=== PATIENT | female | born 1980 | race Caucasian/White ===

== ENCOUNTER 2019-03-17 18:35 | Emergency (ER) | payer OTHER ==
[2019-03-17 18:48] VITALS: BP 149/84
--- NOTE | 2019-03-17 19:00 | UC ---
Complaint Female HPI - HPI Summary HPI Summary: Patient is a 39yo female presenting with burning with urination x1 hour. Patient states she "gets UTIs occasionally and knows her symptoms." Denies abdominal pain. Denies hematuria. Denies malodorous urine. Denies flank pain. Denies fever and chills. Denies n/v. Patient states she "usually take Macrobid or Bactrim." - History Of Current Complaint Stated Complaint: URINARY Hx Obtained From: Patient Hx Last Menstrual Period: 03/08/19 Onset/Duration: Sudden Onset, Lasting Hours Pain Intensity: 8 Pain Scale Used: 0-10 Numeric - Allergies/Home Medications Allergies/Adverse Reactions: Allergies Allergy/AdvReac Type Severity Reaction Status Date / Time No Known Allergies Allergy Verified 03/17/19 18:42 Home Medications: Home Medications Cholecalciferol TAB* [Vitamin D TAB*] 1,000 unit PO DAILY 03/17/19 [History Confirmed 03/17/19] Magnesium Oxide [Magnesium] 500 mg PO DAILY 03/17/19 [History Confirmed 03/17/19 ] Tranexamic Acid 2 tab PO TID PRN 03/17/19 [History Confirmed 03/17/19] PMH/Surg Hx/FS Hx/Imm Hx Previously Healthy: Yes - Surgical History Surgical History: None - Family History Known Family History: Positive: Unknown, Non-Contributory - Social History Occupation: Employed Full-time Alcohol Use: Occasionally Substance Use Type: None Smoking Status (MU): Never Smoked Tobacco Review of Systems All Other Systems Reviewed And Are Negative: Yes Constitutional: Positive: Negative. Negative: Fever, Chills Respiratory: Positive: Negative Cardiovascular: Positive: Negative Gastrointestinal: Positive: Negative. Negative: Abdominal Pain, Vomiting, Nausea Genitourinary: Positive: Dysuria. Negative: Hematuria, Frequency, Urgency Physical Exam Triage Information Reviewed: Yes Appearance: Well-Appearing, No Pain Distress, Well-Nourished Vital Signs: Initial Vital Signs Temp 98 F 03/17/19 18:44 Pulse 88 03/17/19 18:44 Resp 16 03/17/19 18:44 BP 149/84 03/17/19 18:44 Pulse Ox 100 03/17/19 18:44 Lab Results 03/17/19 Range/Units 18:58 POC Urine Color Light yellow POC Urine Clarity Clear POC Urine pH 5.5 (5-9) POC Ur Specif [place] <= 1.005 L (1.010-1.030) POC Urine Protein Negative (Negative) POC Ur Glucose (UA) Negative (Negative) POC Urine Ketones Negative (Negative) POC Urine Blood 1+ A (Negative) POC Urine Nitrite Negative (Negative) POC Urine Bilirubin Negative (Negative) POC Urine Urobilinogen 0.2 (Negative) POC U Leukocyte Esteras 1+ A (Negative) Vital Signs Reviewed: Yes Eyes: Positive: Conjunctiva Clear ENT: Positive: Hearing grossly normal Neck: Positive: Supple Respiratory: Positive: No respiratory distress Abdominal Exam: Normal Abdomen Description: Positive: Nontender, Soft. Negative: CVA Tenderness (R), CVA Tenderness (L) Neurological: Positive: Alert Psychological: Positive: Age Appropriate Behavior Complaint Female Dx - Course Course Of Treatment: I treated patient with Macrobid for uncomplicated UTI. Instructed to follow up with PCP if symptoms persist or return or go to ED if they worsen. Patient voiced understanding and agreed with treatment plan. - Differential Dx/Diagnosis Provider Diagnosis: UTI (urinary tract infection), uncomplicated Discharge ED - Sign-Out/Discharge Documenting (check all that apply): Patient Departure All imaging exams completed and their final reports reviewed: No Studies - Discharge Plan Condition: Stable Disposition: HOME Prescriptions: Nitrofurantoin Monohyd/M-Cryst [Macrobid 100 mg Capsule] 100 mg PO BID #10 cap Patient Education Materials: Urinary Tract Infection in Women (ED) Referrals: Carrol Stroud [Primary Care Provider] - If Needed Additional Instructions: Take Macrobid twice daily for 5 days. Increase your fluid intake. Follow up with your PCP if your symptoms do not resolve within 7 days. Return or go to the ED if you experience new or worsening symptoms. - Billing Disposition and Condition Condition: STABLE Disposition: Home
== END 2019-03-17 19:11 | disposition home or self-care (01) ==
LOC: UCCORT 18:35
DX: N39.0 Urinary tract infection, site not specified (principal)
CPT/HCPCS: 81003; 87086; 99212; G0463

== ENCOUNTER 2022-10-07 05:31 | Inpatient (IN) ==
[2022-10-08] MEDS ORDERED: Buffered Lidocaine 1% SYRIN 1 ml INTRADERM ONE ×2 (06:00)
[2022-10-08] MEDS ORDERED: ceFOXitin 2 GM IVPREMIX 2 GM/50 ML BAG IVPB ONE (06:00)
[2022-10-08] MEDS ORDERED: Lactated Ringers 1000 ml BAG 1,000 ML IV SCH ×3 (06:00→10:00)
[2022-10-08] MEDS ORDERED: Lactated Ringers 1000 ml BAG 1,000 ML IV ONE (06:00)
[2022-10-08] MEDS ORDERED: Sodium Citrate/Citric Acid LIQ 15 ML UDC PO ONE (06:00)
[2022-10-08] MEDS ORDERED: ceFAZolin 2 GM/50 ML BAG IV ONE (07:00)
[2022-10-08 07:11] LABS: ABS Lymphocytes 1.8 10^3/uL (1.0-4.8); ABS Monocytes 0.6 10^3/uL (0.0-0.9); ABS Neutrophils 7.9 10^3/uL (1.5-7.6); Eosinophil % 0.2 %; Hemoglobin 11.3 g/dL (11.5-14.3); Lymphocyte % 17.8 %; Mean Corpuscular Hgb Conc 35.2 g/dL (31-36); Mean Corpuscular Volume 88.1 fL (80-97); Mean Platelet Volume 7.7 fL (7.5-11.2); Platelet Count 285 10^3/uL (150-450); Red Blood Count 3.63 10^6/uL (3.63-4.92); Red Cell Distribution Width 15.4 % (12-17); White Blood Count 10.3 10^3/uL (3.8-11.8)
[2022-10-08] MEDS ORDERED: fentaNYL 100 mcg/2 ml 50 MCG/ML VIAL ONE ×2 (07:29→08:52)
[2022-10-08] MEDS ORDERED: Morphine PF AMP (0.5MG/ML) 5 MG/10 ML AMP ONE (07:29)
[2022-10-08] MEDS ORDERED: Phenylephrine 40 mcg/mL 10mL (400mcg) SYRINGE ONE (08:16)
[2022-10-08] MEDS ORDERED: Ondansetron 4 mg VIAL 2 MG/ML 2 ml VIAL ONE (08:45)
[2022-10-08 09:15] LABS: Urine Appearance Clear; Urine Bilirubin Negative (Negative); Urine Blood Negative (Negative); Urine Color Straw; Urine Glucose Negative (Negative); Urine Ketones Negative (Negative); Urine Nitrite Negative (Negative); Urine Protein Negative (Negative); Urine Specific Gravity 1.004 (1.002-1.030); Urine Urobilinogen Negative (Negative)
[2022-10-08] MEDS ORDERED: Dibucaine 1% OINT 28.35 GM TUBE PR PRN (09:25)
[2022-10-08] MEDS ORDERED: Witch Hazel PAD JAR TOPICAL PRN (09:25)
[2022-10-08] MEDS ORDERED: Glycerin ADULT 2.4 gm SUPP PR PRN (09:25)
[2022-10-08] MEDS ORDERED: Ondansetron 4 mg VIAL 2 MG/ML 2 ml VIAL IV PRN (09:26)
[2022-10-08] MEDS ORDERED: Acetaminophen IV 1 GM/100ML 1,000 MG/100 ML BAG IV PRN (09:26)
[2022-10-08] MEDS ORDERED: Metoclopramide 5 MG/ML VIAL (10 mg) IV PRN (09:26)
[2022-10-08] MEDS ORDERED: Naloxone 0.4 mg VIAL 0.4 mg/ml 1 ml VIAL IV PUSH PRN (09:26)
[2022-10-08] MEDS ORDERED: Oxytocin in LR 20,000 MILLI.UNIT/1,000 ML BAG IV SCH (09:30)
[2022-10-08 09:59] LABS: Urine Benzodiazepine Screen None Detected (None Detect); Urine Cannabinoids Screen None Detected (None Detect); Urine Opiates Screen None Detected (None Detect)
[2022-10-09 06:57] LABS: ABS Lymphocytes 1.8 10^3/uL (1.0-4.8); ABS Monocytes 0.6 10^3/uL (0.0-0.9); ABS Neutrophils 9.2 10^3/uL (1.5-7.6); Eosinophil % 0.1 %; Hematocrit 22.5 % (35-45); Hemoglobin 7.9 g/dL (11.5-14.3); Lymphocyte % 15.5 %; Mean Corpuscular Hemoglobin 30.9 pg (27-33); Mean Corpuscular Volume 88.5 fL (80-97); Mean Platelet Volume 7.2 fL (7.5-11.2); Platelet Count 204 10^3/uL (150-450); Red Blood Count 2.54 10^6/uL (3.63-4.92); Red Cell Distribution Width 15.6 % (12-17); White Blood Count 11.7 10^3/uL (3.8-11.8)
[2022-10-10 09:57] LABS: Hematocrit 20.9 % (35-45); Hemoglobin 7.3 g/dL (11.5-14.3)
[2022-10-10] MEDS ORDERED: Iron Sucrose 200 MG in NS 0.9% 100 ml BAG 100 ML IVPB ONE (10:58)
[2022-10-11 08:28] VITALS: BP 131/75
== END 2022-10-11 14:33 | disposition home or self-care (01) | DRG 787 ==
LOC: MCHOB 10-08 05:31
PROVIDERS: ADMIT Obstetrics & Gynecology; ATTEND Obstetrics & Gynecology